=== PATIENT | female | born 1985 | race Caucasian/White ===

== ENCOUNTER 2016-12-26 10:54 | Emergency (ER) | payer OTHER ==
--- NOTE | 2016-12-26 13:05 | DIAGNOSTIC IMAGING REPORT ---
PROCEDURE: US VENOUS - BILATERAL EXT INDICATION: PAIN, SWELLING, HX OF DVT TECHNIQUE: Duplex sonography of the deep venous system in both lower extremities was performed. Compression and augmentation techniques were used. COMPARISON: None. FINDINGS: On the right side each interrogated segment of deep vein from the common femoral vein into the calf veins demonstrates normal compressibility, augmentation and/or color Doppler flow without filling defect. No evidence of significant soft-tissue edema, soft-tissue mass or cyst. On the left side there is nonocclusive thrombus and scarring noted from the common femoral vein through the popliteal vein. IMPRESSION: 1. No deep venous thrombosis in the right lower extremity. 2. Left lower extremity positive for nonocclusive thrombus and vessel scarring seen from the common femoral vein down through the popliteal vein.
--- NOTE | 2016-12-26 13:39 | DIAGNOSTIC IMAGING REPORT ---
PROCEDURE: CTA THORAX WITH CONTRAST INDICATION: Chest pain, initial encounter TECHNIQUE: 80 ml of Isovue 370 was injected intravenously and axial images were obtained of the entire thorax with 3D sagittal and coronal MIP reconstructions. COMPARISON: None. FINDINGS: No evidence of pulmonary emboli. Minor dependent atelectasis in both lung bases. Right axillary surgical clips. No adenopathy or effusion. Normal thoracic aorta without dissection or aneurysm. Normal coronaries. Mild cardiomegaly. Visualized abdomen is unremarkable. Mild degenerative changes of the spine. IMPRESSION: 1. No evidence of prior emboli, aortic dissection or aneurysm 2. Mild cardiomegaly 3. Results discussed with Dr. Hernandez
--- NOTE | 2016-12-26 15:28 | ED CLINICAL REPORT ---
Clinical Report - Physicians/Mid Levels [facility] [address] [place] [address] 12/26/2016 10:54 Patient: GINA YATES Arrived- By private vehicle. Historian- patient. HISTORY OF PRESENT ILLNESS Chief Complaint: CHEST PAIN. It is described as located in the central chest area. No radiation. At its maximum, severity described as moderate. When seen in the E.D., severity described as moderate. Modifying factors. Not worsened by anything. Not relieved by anything. This started past few days and is still present. It was abrupt in onset and has been constant but is not gone now. Onset during rest. The patient has had difficulty breathing and nausea. No vomiting or diaphoresis. No additional chest pain. Similar symptoms previously: None. Recent medical care: Not recently seen/assessed. REVIEW OF SYSTEMS No fever, chills, abdominal pain, black stools or difficulty with urination. No bloody stools. All systems otherwise negative, except as recorded above. PAST HISTORY See nurses notes. Medications: Xarelto Oral. Allergies: No Known Drug Allergy. SOCIAL HISTORY Never smoker. No alcohol use or drug use. No recent travel. Is a local resident. ADDITIONAL NOTES The nursing notes have been reviewed. PHYSICAL EXAM Vital Signs: 12/26/2016 11:01 BP: 143/84. HR: 93. RR: 20. O2 saturation: 100%. Temp: 97.8 F. Hypertensive. Oxygen saturation normal. Appearance: Alert. Oriented X3. No acute distress. Eyes: Pupils equal, round and reactive to light. Eyes normal inspection. ENT: Ears normal. Nose normal. Pharynx normal. Neck: Normal inspection. Neck supple. CVS: Normal heart rate and rhythm. Heart sounds normal. Pulses normal. Respiratory: No respiratory distress. Breath sounds normal. Chest nontender. No rales, rhonchi or wheezes. Abdomen: Soft and nontender. Bowel sounds normal. Skin: Skin warm and dry. Normal skin color. No rash. Normal skin turgor. Extremities: Extremities exhibit normal ROM. No lower extremity edema. LABS, X-RAYS, AND EKG EKG: No acute process. No acute ischemia. Normal EKG. Normal sinus rhythm. Rate: 91. Normal P waves. Normal RUFINO. Normal QRS complex. Normal axis. Normal ST and T waves, QT and QTc. The study has been interpreted contemporaneously. The study has been independently viewed by me. The EKG appears to be a good tracing. Chest CT: (PROCEDURE: CTA THORAX WITH CONTRAST INDICATION: Chest pain, initial encounter TECHNIQUE: 80 ml of Isovue 370 was injected intravenously and axial images were obtained of the entire thorax with 3D sagittal and coronal MIP reconstructions. COMPARISON: None. FINDINGS: No evidence of pulmonary emboli. Minor dependent atelectasis in both lung bases. Right axillary surgical clips. No adenopathy or effusion. Normal thoracic aorta without dissection or aneurysm. Normal coronaries. Mild cardiomegaly. Visualized abdomen is unremarkable. Mild degenerative changes of the spine. IMPRESSION: 1. No evidence of prior emboli, aortic dissection or aneurysm 2. Mild cardiomegaly). Chest CT performed with contrast. The study was independently viewed by me and interpreted by the radiologist. The study was discussed with the radiologist (via phone and pacs). Lower Extremity Sonography: Vessels patent. Bilateral US. Chronic DVT left lower extremity. No acute DVT. The exam was performed by a tire technician. The study was independently viewed by me, interpreted contemporaneously by me and discussed with the radiologist. Laboratory Tests: UA-Culture if indicated: (SIMRAN: 12/26/2016 11:48) ( MsgRcvd 12/26/2016 12:04) Final results Test Result Flag Units (Reference) URINE COLOR YELLOW URINE APPEARANCE SL CLOUDY URINE GLUCOSE NEGATIVE (NEGATIVE) URINE BILIRUBIN NEGATIVE (NEGATIVE) URINE KETONE NEGATIVE (NEGATIVE) URINE SPECIFIC GRAVITY 1.020 (1.010-1.030) URINE PH 7.5 (5.0-8.0) URINE PROTEIN NEGATIVE (NEGATIVE) URINE UROBILINOGEN 0.2 EU/dL (0.2-1.0) URINE NITRITE NEGATIVE (NEGATIVE) URINE BLOOD TRACE-INTACT (NEGATIVE) URINE LEUK ESTERASE NEGATIVE (NEGATIVE) URINE RBC 1-3 rbc/hpf (0-1) URINE WBC 3-5 wbc/hpf (0-1) URINE EPITHELIAL CELLS 10-15 EPI/hpf (0-5) URINE BACTERIA FEW (1+) (NONE SEEN) URINE COMMENT CULT NOT INDICATED 2+ MUCOUSURINE CULTURES ARE SET-UP BASED ON THE FOLLOWING CRITERIA:POSITIVE NITRITEPOSITIVE LEUKOCYTE ESTERASEGREATER THAN 10 WHITE BLOOD CELLSMODERATE (2+) OR GREATER BACTERIA Urine: (SIMRAN: 12/26/2016 11:48) ( [facility] 12/26/2016 11:56) Final results Test Result Flag Units (Reference) URINE NEGATIVE CBC w Diff: (SIMRAN: 12/26/2016 11:55) ( [facility] 12/26/2016 12:06) Final results Test Result Flag Units (Reference) WHITE BLOOD COUNT 8.3 K/uL (4.5-11.5) RED BLOOD COUNT 4.39 M/uL (4.00-5.20) HEMOGLOBIN 13.3 gm/dL (12.0-16.0) HEMATOCRIT 39.1 % (36.0-46.0) MEAN CELL VOLUME 89 fL (80-100) MEAN CORPUSCULAR HGB 30 pg (26-34) MEAN CORPUSCULAR HGB CONC 34 g/dL (31-37) RED CELL DISTRIBUTION WIDTH 12.2 % (11.6-14.8) PLATELET COUNT 264 K/uL (150-400) NEUTROPHIL % 58.8 % (50-75) LYMPH % 32.2 % (25-40) MONO % 7.5 % (3-14) EOSINOPHIL % 1.1 % (0-4) BASOPHIL % 0.4 % (0-2) PT with INR: (SIMRAN: 12/26/2016 11:55) ( [facility] 12/26/2016 12:09) Final results Test Result Flag Units (Reference) INR 1.3 H (0.8-1.2) Low Intensity Therapy: INR 1.5-2.0 PT range 18.5-23.1Mod.Intensity Therapy: INR 2.0-3.0 PT range 23.1-31.5High Intensity Therapy: INR 2.5-3.5 PT range 27.4-35.5High Intensity Therapy 2: INR 3.0-4.0 PT range 31.5-39.3 APTT 35 H SECONDS (24-34) BNP: (SIMRAN: 12/26/2016 11:55) ( [facility] 12/26/2016 14:00) Final results Test Result Flag Units (Reference) B-TYPE NATRIURETIC PEPTIDE 14.3 pg/ml (5-100) Urine Drug Screen: (SIMRAN: 12/26/2016 11:48) ( [facility] 12/26/2016 12:16) Final results Test Result Flag Units (Reference) AMPHETAMINE/METHAMPHETAMINE NEGATIVE (NEGATIVE) BARBITURATE NEGATIVE (NEGATIVE) BENZODIAZEPINE NEGATIVE (NEGATIVE) CANNABINOID NEGATIVE (NEGATIVE) COCAINE NEGATIVE (NEGATIVE) ECSTASY NEGATIVE (NEGATIVE) METHADONE NEGATIVE (NEGATIVE) OPIATE NEGATIVE (NEGATIVE) The urine drug screen is a qualitative screening test fordrug overdose and abuse. All screen results should beconsidered as presumptive.Drugs screened for are as follows:BenzodiazepinesCocaineAmphetamines/MetamphetaminesTHC (Tetrahydrocannabinol)OpiatesBarbituratesEcstasyMethadonePositive results are unconfirmed. For confirmation, notifythe lab for the specimen to be sent to the reference lab.All confirmations must be performed by a differentmethodology.The ingestion of natural herbal and plant productscontaining Ephedra/Ephedra metabolites can produce in urineone or more substances capable of cross reacting withamphetamine/methamphetamine immunoassays. These testsprovide a preliminary result only. A more specificalternative chemical method must be used to obtain aconfirmed analytical result. CMP: (SIMRAN: 12/26/2016 11:55) ( [facility] 12/26/2016 12:22) Final results Test Result Flag Units (Reference) GLUCOSE 89 mg/dL (70-110) BUN 12 mg/dL (7-18) CREATININE 0.6 mg/dL (0.6-1.3) Estimated GFR >60 mL/min Estimated GFR- >60 mL/min Note: Persistent reduction over 3 months in eGFR<60 mL/min/1.73 m2 defines CKD. Patients with eGFR values>=60 mL/min/1.73 m2 may also have CKD if evidence ofpersistent proteinuria. Additional information may be foundat www.kidney.org. SODIUM 139 mmol/L (136-145) POTASSIUM 4.2 mmol/L (3.5-5.1) CHLORIDE 103 mmol/L (98-107) CARBON DIOXIDE 28 mmol/L (21-32) CALCIUM 9.3 mg/dL (8.5-10.1) TOTAL PROTEIN 7.4 g/dL (6.4-8.2) ALBUMIN 3.9 g/dL (3.3-5.0) BILIRUBIN, TOTAL 0.8 mg/dL (0.0-1.0) ALKALINE PHOSPHATASE 87 U/L (46-116) AST (SGOT) 18 U/L (15-37) ALT (SGPT) 33 U/L (12-78) TROPONIN I <0.05 ng/mL (0.00-1.5) TROPONIN REFERENCE RANGE:<0.1 NEGATIVE0.1-1.5 INDETERMINANT>1.5 POSITIVE . PROGRESS AND PROCEDURES Course of Care: he patient is a pleasant 31-year-old female with a past medical history significant for DVTs presenting for evaluation of chest pain. Patient was encouraged by her providers to come to the emergency department. The patient is resting in bed and in no acute distress. Patient appears nontoxic. Because of the patient's history of DVT, we'll be evaluating patient with CT scan of the chest. Do not feel d-dimer adequate given the patient's risk. Patient is agreeable to the treatment plan. We'll also be ordering laboratory studies for evaluation of other causes for the patient's chest pain including a troponin. patient's EKG is unremarkable. Rest of the laboratory studies do not show any acute abnormalities. CT scan of the chest is pending at this time. Workup does not show any acute abnormalities. CT scan of the chest does not show any signs of thoracic aortic dissection or pulmonary embolism. Patient on anticoagulation treatment already. Patient is having appropriate therapy. Do not feel further emergency department workup or admission to the hospital is required at this point in time. Patient is noted to be low risk for acute myocardial infarction. Encouraged patient to follow up with primary care for further risk stratification and workup. I discussed with the patient her workup, diagnosis, home care, follow-up, and return precautions. All questions answered. The patient expressed understanding of these instructions and was agreeable to them. CLINICAL IMPRESSION Chest pain characterized as "tightness" .12 lead EKG performed. 12/26/2016 11:01 BP: 143/84. HR: 93. RR: 20. O2 saturation: 100%. Temp: 97.8 F. Blood pressure normal. Oxygen saturation normal. chronic left leg pain chronic left DVT. INSTRUCTIONS Warnings: GENERAL WARNINGS: Return or contact your physician immediately if your condition worsens or changes unexpectedly, if not improving as expected, or if other problems arise. SPECIFICALLY, return if you develop chest, neck, jaw, shoulder, arm, or back pain, difficulty breathing, a fluttering sensation in your chest, lightheadedness, fainting, excessive fatigue, or sudden sweating. Your Current Medications: CONTINUE TAKING THE FOLLOWING MEDICATIONS: Xarelto Oral. Prescription Medications: Percocet 5 mg/325 mg: take 1 tablet orally every 6 hours as needed for pain. Dispense twelve (12). No refill. Substitution is permissible. Follow-up: Return to the emergency department as needed. Follow up with your doctor in three days. Reason for referral: recheck today's concerns. Summary of care provided to patient via paper. Screening today revealed the patient's blood pressure to be in the normal range. The patient should follow up with a primary care provider for blood pressure management. Understanding of the discharge instructions verbalized by patient. (Electronically signed by Raymond Hernandez Dr. 01/01/2017 6:49)
--- NOTE | 2016-12-26 15:28 | ED ORDER SUMMARY ---
..... Patient: GINA YATES [facility] VisitID: [id number] [place] [address] 31y, F Registration Date/Time: 12/26/2016 ORDER SHEET Weight: 86.1 kg (stated) Allergies: No Known Drug Allergy GENERAL ORDERS: Flat Cutter (Continuous) (CP) (11:12/26/2016 Ras Mohan) (Ack 11:15 LNations ER Tech1) (11:54 LWhalen R.N.) CTA Thorax w Cont (No) (N/A) Urgent (11:12/26/2016 Ras Mohan) (Ack 11:16 LNations ER Tech1) (15:34 LNations ER Tech1) CBC w Diff Urgent (11:12/26/2016 Ras Mohan) (Ack 11:15 LNations ER Tech1) (15:34 LNations ER Tech1) CMP Urgent (11:12/26/2016 Ras Mohan) (Ack 11:15 LNations ER Tech1) (15:34 LNations ER Tech1) PT with INR Urgent (11:12/26/2016 Ras Mohan) (Ack 11:16 LNations ER Tech1) (15:34 LNations ER Tech1) PTT Urgent (11:12/26/2016 Ras Mohan) (Ack 11:16 LNations ER Tech1) (15:34 LNations ER Tech1) Troponin-I Urgent (11:12/26/2016 Ras Mohan) (Ack 11:16 LNations ER Tech1) (15:34 LNations ER Tech1) Urine Drug Screen Urgent (11:12/26/2016 Ras Mohan) (Ack 11:16 LNations ER Tech1) (11:54 LWhalen R.N.) Urine Urgent (11:12/26/2016 Ras Mohan) (Ack 11:16 LNations ER Tech1) (11:54 LWhalen R.N.) UA-Culture if indicated Urgent (11:12/26/2016 Ras Mohan) (Ack 11:16 LNations ER Tech1) (11:53 LWhalen R.N.) EKG - ER Stat (11:11 12/26/2016 Ras Mohan) (Ack 11:14 LNations ER Tech1) (11:17 LTapper) Pulse oximeter (11:11 12/26/2016 Ras Mohan) (Ack 11:15 LNations ER Tech1) (11:54 LWhalen R.N.) US Venous Bilat Urgent (11:20 12/26/2016 Ras Mohan) (Ack 11:24 LNations ER Tech1) (15:34 LNations ER Tech1) BNP Urgent (13:36 12/26/2016 Ras Mohan) (Ack 13:37 LNations ER Tech1) (15:34 LNations ER Tech1) MEDICATION ORDERS: IV FLUIDS: IV Saline Lock (11:11 12/26/2016 Ras Mohan) (11:38 LWhalen R.N.) Morphine IV 4 mg (once now. may repeat in 15 minutes for no improvement of pain for total of 8 mg) (11:21 12/26/2016 Ras Mohan) (11:38 LWhalen R.N.) ORDER SHEET NOTES: [Electronically signed by Estuardo Carpenter R.N. (19:20 12/26/2016)] [Electronically signed by Raymond Hernandez Dr. (06:49 01/01/2017)] [Electronically locked/signed by Estuardo Carpenter R.N. (19:20 12/26/2016)]
--- NOTE | 2016-12-26 15:28 | ED ORDER SUMMARY ---
..... Patient: GINA YATES OrderSheet [facility] VisitID: [id number] [place] [address] 31y, F Registration Date/Time: 12/26/2016 ORDER SHEET Weight: 86.1 kg (stated) Allergies: No Known Drug Allergy GENERAL ORDERS: Building Mechanic (Continuous) (CP) (11:12/26/2016 Ras Mohan) (Ack 11:15 LNations ER Tech1) (11:54 LWhalen R.N.) CTA Thorax w Cont (No) (N/A) Urgent (11:12/26/2016 Ras Mohan) (Ack 11:16 LNations ER Tech1) (15:34 LNations ER Tech1) CBC w Diff Urgent (11:12/26/2016 Ras Mohan) (Ack 11:15 LNations ER Tech1) (15:34 LNations ER Tech1) CMP Urgent (11:12/26/2016 Ras Mohan) (Ack 11:15 LNations ER Tech1) (15:34 LNations ER Tech1) PT with INR Urgent (11:12/26/2016 Ras Mohan) (Ack 11:16 LNations ER Tech1) (15:34 LNations ER Tech1) PTT Urgent (11:12/26/2016 Ras Mohan) (Ack 11:16 LNations ER Tech1) (15:34 LNations ER Tech1) Troponin-I Urgent (11:12/26/2016 Ras Mohan) (Ack 11:16 LNations ER Tech1) (15:34 LNations ER Tech1) Urine Drug Screen Urgent (11:12/26/2016 Ras Mohan) (Ack 11:16 LNations ER Tech1) (11:54 LWhalen R.N.) Urine Urgent (11:12/26/2016 Ras Mohan) (Ack 11:16 LNations ER Tech1) (11:54 LWhalen R.N.) UA-Culture if indicated Urgent (11:12/26/2016 Ras Mohan) (Ack 11:16 LNations ER Tech1) (11:53 LWhalen R.N.) EKG - ER Stat (11:11 12/26/2016 Ras Mohan) (Ack 11:14 LNations ER Tech1) (11:17 LTapper) Pulse oximeter (11:11 12/26/2016 Ras Mohan) (Ack 11:15 LNations ER Tech1) (11:54 LWhalen R.N.) US Venous Bilat Urgent (11:20 12/26/2016 Ras Mohan) (Ack 11:24 LNations ER Tech1) (15:34 LNations ER Tech1) BNP Urgent (13:36 12/26/2016 Ras Mohan) (Ack 13:37 LNations ER Tech1) (15:34 LNations ER Tech1) MEDICATION ORDERS: IV FLUIDS: IV Saline Lock (11:11 12/26/2016 Ras Mohan) (11:38 LWhalen R.N.) Morphine IV 4 mg (once now. may repeat in 15 minutes for no improvement of pain for total of 8 mg) (11:21 12/26/2016 Ras Mohan) (11:38 LWhalen R.N.) ORDER SHEET NOTES: [Electronically signed by Estuardo Carpenter R.N. (19:20 12/26/2016)] [Electronically signed by Raymond Hernandez Dr. (06:49 01/01/2017)] [Electronically locked/signed by Estuardo Carpenter R.N. (19:20 12/26/2016)]
--- NOTE | 2016-12-26 15:28 | ED NURSING NOTES ---
Clinical Report - Nurses [place] [address] [place] [address] 12/26/2016 10:54 Patient: GINA YATES TRIAGE Triage time 11:02 Dec 26 2016. Acuity: LEVEL 2. Chief Complaint: CHEST PAIN, DYSPNEA, NAUSEA and LEG PAIN (hx of clots). KUNAL COMA SCORE: [place] Coma Scale: 15- eyes open spontaneously (4); best verbal response- oriented x 4 (5); best motor response- obeys commands (6). --11:09 Estuardo Carpenter R.N. 11:01 12/26/16. BP: 143/84. HR: 93. RR: 20. O2 saturation: 100%. Temp: 97.8 F. --11:09 Estuardo Carpenter R.N. Weight: 86.1 kg stated. Height/Length: 64 inches Per Patient. BMI: 32.6. --11:08 Estuardo Carpenter R.N. Medications Xarelto Oral. --11:05 Estuardo Carpenter R.N. Allergies No Known Drug Allergy. --11:05 Estuardo Carpenter R.N. History Arrived by private vehicle. Historian: patient. Primary physician (). This started yesterday. She has had difficulty breathing. No fever, weakness, cough or skin rash. Denies muscle aches. 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 PAST MEDICAL HX: Last normal menstrual period- 5 days ago. SOCIAL HX: Never smoker. No alcohol use or drug use. No infectious disease exposure. SELF HARM ASSESSMENT: A self harm assessment was performed. The patient answered "no" to the question "Have you recently felt down, depressed, or hopeless?" and "Do you have thoughts of harming or killing yourself?". FALL RISK ASSESSMENT: Fall risk assessment completed. No fall risk identified. NUTRITIONAL RISK ASSESSMENT: The nutritional risk assessment revealed no deficiencies. FUNCTIONAL ASSESSMENT: Functional assessment: no impairments noted. LEARNING NEEDS ASSESSMENT: The learning needs assessment revealed no barriers. ABUSE ASSESSMENT: Abuse assessment: (yes) The patient was asked "Do you feel safe in your home?". SKIN INTEGRITY ASSESSMENT: Skin integrity risk assessment completed. No skin integrity risk identified. --: Estuardo Carpenter R.N. PROBLEMS: Muscle Spasm. Back Pain. Ovarian Cyst. LNMP - Last Normal Menstrual Period. Lumbar Strain. Pharyngitis. DVT - Deep Venous Thrombosis. Immunizations. --: Estuardo Carpenter R.N. Interventions ID band on patient. --: Estuardo Carpenter R.N. PHYSICAL ASSESSMENT Ambulatory to room. ( Left leg swelling and tenderness. Chest pain. SOB). GENERAL / NEURO / PSYCH: Alert. Oriented X 4. Appears in no acute distress. Appears anxious. HEENT: Pupils equal, round and reactive to light. No facial asymmetry noted. Mucous membranes are pink. RESPIRATORY: Respirations not labored. Chest nontender. Breath sounds within normal limits. CVS: Normal sinus rhythm noted. Capillary refill less than 2 seconds. Pulses within normal limits. GI / : Abdomen soft and nontender and normal bowel sounds. SKIN: Skin intact. Skin is warm and dry. Normal skin turgor. --: Estuardo Carpenter R.N. NURSING PROGRESS NOTES The plan of care for this patient includes an assessment with efforts to address the patient's anxiety; patient positioning and appropriate ambient lighting; mobility impairments; therapeutic needs of the patient. monitoring analyst, pulse oximeter and NIBP monitor placed on patient. Head of bed elevated (45). Reassurance given. Call light placed in reach. Side rails up x 1. Bed placed in lowest position. Brakes of bed on. --: Estuardo Carpenter R.N. EKG time: (11:16 AM). EKG was performed by a tech and shown to the ED physician. --11:18 Fidencio Castle 11:34 12/26/2016 Site #1 started via IV in the right hand with an 20g angiocath, with aseptic technique and good blood return; one attempt. Saline lock flushed with 10 mL saline (unable to draw blood). --:34 Sylvia Morales R.N. 11:38 12/26/2016 Morphine IVP 4 mg given over 2 minute(s) via site #1. Allergies verified, confirmed 5 rights and sedative warning given to the patient's kardex clerk. IV patency established. IV site checked: no pain, redness, or swelling. IV flushed thoroughly pre- and post-medication administration. --11:38 Estuardo Carpenter R.N. ( POC collected result is negative.). --11:53 Estuardo Carpenter R.N. 12:46 12/26/2016 Morphine IVP 4 mg given over 2 minute(s) via site #1. Allergies verified, confirmed 5 rights and sedative warning given to the patient. IV patency established. IV site checked: no pain, redness, or swelling. IV flushed thoroughly pre- and post-medication administration. --12:46 Estuardo Carpenter R.N. DISPOSITION / DISCHARGE Departure time: 15:33 Dec 26 2016. Condition at departure: improved. No learning barriers present. Discharge instructions provided and reviewed with the patient. Reviewed warnings. Reviewed medication(s). Treatments reviewed. Reviewed referrals. Patient verbalized understanding. Written instructions provided in Lithuanian. The patient was discharged home and accompanied by spouse. She left the Emergency Department ambulatory and via private vehicle. Spouse driving. --15:33 Estuardo Carpenter R.N. 15:32 12/26/16. BP: 104/64. HR: 84. RR: 23. O2 saturation: 96%. Temp: 98.4 F. Pain level now 3/10. --15:33 Estuardo Carpenter R.N. 15:39 12/26/2016 Site #1 removed upon discharge. Catheter intact. Pressure dressing applied. --15:39 Estuardo Carpenter R.N. Locked/Released at 12/26/2016 19:20 by Estuardo Carpenter R.N.
--- NOTE | 2016-12-26 15:28 | ED NURSING NOTES ---
Clinical Report - Nurses [place] [address] [place] [address] 12/26/2016 10:54 Patient: GINA YATES TRIAGE Triage time 11:02 Dec 26 2016. Acuity: LEVEL 2. Chief Complaint: CHEST PAIN, DYSPNEA, NAUSEA and LEG PAIN (hx of clots). [place] COMA SCORE: [place] Coma Scale: 15- eyes open spontaneously (4); best verbal response- oriented x 4 (5); best motor response- obeys commands (6). --11:09 Estuardo Carpenter R.N. 11:01 12/26/16. BP: 143/84. HR: 93. RR: 20. O2 saturation: 100%. Temp: 97.8 F. --11:09 Estuardo Carpenter R.N. Weight: 86.1 kg stated. Height/Length: 64 inches Per Patient. BMI: 32.6. --11:08 Estuardo Carpenter R.N. Medications Xarelto Oral. --11:05 Estuardo Carpenter R.N. Allergies No Known Drug Allergy. --11:05 Estuardo Carpenter R.N. History Arrived by private vehicle. Historian: patient. Primary physician (). This started yesterday. She has had difficulty breathing. No fever, weakness, cough or skin rash. Denies muscle aches. 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 PAST MEDICAL HX: Last normal menstrual period- 5 days ago. SOCIAL HX: Never smoker. No alcohol use or drug use. No infectious disease exposure. SELF HARM ASSESSMENT: A self harm assessment was performed. The patient answered "no" to the question "Have you recently felt down, depressed, or hopeless?" and "Do you have thoughts of harming or killing yourself?". FALL RISK ASSESSMENT: Fall risk assessment completed. No fall risk identified. NUTRITIONAL RISK ASSESSMENT: The nutritional risk assessment revealed no deficiencies. FUNCTIONAL ASSESSMENT: Functional assessment: no impairments noted. LEARNING NEEDS ASSESSMENT: The learning needs assessment revealed no barriers. ABUSE ASSESSMENT: Abuse assessment: (yes) The patient was asked "Do you feel safe in your home?". SKIN INTEGRITY ASSESSMENT: Skin integrity risk assessment completed. No skin integrity risk identified. --: Estuardo Carpenter R.N. PROBLEMS: Muscle Spasm. Back Pain. Ovarian Cyst. LNMP - Last Normal Menstrual Period. Lumbar Strain. Pharyngitis. DVT - Deep Venous Thrombosis. Immunizations. --: Estuardo Carpenter R.N. Interventions ID band on patient. --: Estuardo Carpenter R.N. PHYSICAL ASSESSMENT Ambulatory to room. ( Left leg swelling and tenderness. Chest pain. SOB). GENERAL / NEURO / PSYCH: Alert. Oriented X 4. Appears in no acute distress. Appears anxious. HEENT: Pupils equal, round and reactive to light. No facial asymmetry noted. Mucous membranes are pink. RESPIRATORY: Respirations not labored. Chest nontender. Breath sounds within normal limits. CVS: Normal sinus rhythm noted. Capillary refill less than 2 seconds. Pulses within normal limits. GI / : Abdomen soft and nontender and normal bowel sounds. SKIN: Skin intact. Skin is warm and dry. Normal skin turgor. --: Estuardo Carpenter R.N. NURSING PROGRESS NOTES The plan of care for this patient includes an assessment with efforts to address the patient's anxiety; patient positioning and appropriate ambient lighting; mobility impairments; therapeutic needs of the patient. groundwater monitoring technician, pulse oximeter and NIBP monitor placed on patient. Head of bed elevated (45). Reassurance given. Call light placed in reach. Side rails up x 1. Bed placed in lowest position. Brakes of bed on. --: Estuardo Carpenter R.N. EKG time: (11:16 AM). EKG was performed by a tech and shown to the ED physician. --11:18 Fidencio Castle 11:34 12/26/2016 Site #1 started via IV in the right hand with an 20g angiocath, with aseptic technique and good blood return; one attempt. Saline lock flushed with 10 mL saline (unable to draw blood). --:34 Sylvia Morales R.N. 11:38 12/26/2016 Morphine IVP 4 mg given over 2 minute(s) via site #1. 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 IV patency established. IV site checked: no pain, redness, or swelling. IV flushed thoroughly pre- and post-medication administration. --11:38 Estuardo Carpenter R.N. ( POC collected result is negative.). --11:53 Estuardo Carpenter R.N. 12:46 12/26/2016 Morphine IVP 4 mg given over 2 minute(s) via site #1. Allergies verified, confirmed 5 rights and sedative warning given to the patient. IV patency established. IV site checked: no pain, redness, or swelling. IV flushed thoroughly pre- and post-medication administration. --12:46 Estuardo Carpenter R.N. DISPOSITION / DISCHARGE Departure time: 15:33 Dec 26 2016. Condition at departure: improved. No learning barriers present. Discharge instructions provided and reviewed with the patient. Reviewed warnings. Reviewed medication(s). Treatments reviewed. Reviewed referrals. Patient verbalized understanding. Written instructions provided in Latvian. The patient was discharged home and accompanied by spouse. She left the Emergency Department ambulatory and via private vehicle. Spouse driving. --15:33 Estuardo Carpenter R.N. 15:32 12/26/16. BP: 104/64. HR: 84. RR: 23. O2 saturation: 96%. Temp: 98.4 F. Pain level now 3/10. --15:33 Estuardo Carpenter R.N. 15:39 12/26/2016 Site #1 removed upon discharge. Catheter intact. Pressure dressing applied. --15:39 Estuardo Carpenter R.N. Locked/Released at 12/26/2016 19:20 by Estuardo Carpenter R.N.
--- NOTE | 2017-01-01 06:49 | ED DISCHARGE INSTRUCTIONS ---
Patient: GINA YATES General Instructions [facility] VisitID: [id number] [place] [address] 31y, F Registration Date/Time: 12/26/2016 Chest pain characterized as "tightness" .12 lead EKG performed. 12/26/2016 11:01 BP: 143/84. HR: 93. RR: 20. O2 saturation: 100%. Temp: 97.8 F. Blood pressure normal. Oxygen saturation normal. chronic left leg pain chronic left DVT. INSTRUCTIONS Warnings: GENERAL WARNINGS: Return or contact your physician immediately if your condition worsens or changes unexpectedly, if not improving as expected, or if other problems arise. SPECIFICALLY, return if you develop chest, neck, jaw, shoulder, arm, or back pain, difficulty breathing, a fluttering sensation in your chest, lightheadedness, fainting, excessive fatigue, or sudden sweating. Your Current Medications: CONTINUE TAKING THE FOLLOWING MEDICATIONS: Xarelto Oral. Prescription Medications: Percocet 5 mg/325 mg: take 1 tablet orally every 6 hours as needed for pain. Dispense twelve (12). No refill. Substitution is permissible. Follow-up: Return to the emergency department as needed. Follow up with your doctor in three days. Reason for referral: recheck today's concerns. Summary of care provided to patient via paper. Screening today revealed the patient's blood pressure to be in the normal range. The patient should follow up with a primary care provider for blood pressure management. Understanding of the discharge instructions verbalized by patient. ADDITIONAL INFORMATION Chest Pain, Uncertain Cause Chest pain can happen for a number of reasons. Sometimes the cause can not be determined. If yourcondition does not seem serious, and your pain does not appear to be coming from your heart, your doctor may recommend watching it closely. Sometimes the signs of a serious problem take more time to appear. Therefore, watch for the warning signs listed below. Home care After your visit, follow these recommendations: Rest today and avoid strenuous activity. Take any prescribed medicine as directed. Follow-up care Follow up with your doctor or this facility as instructed or if you do not start to feel better within 24 hours. Call 911 Get immediate medical attention if any of the following occur: A change in the type of pain: if it feels different, becomes more severe, lasts longer, or begins to spread into your shoulder, arm, neck, jaw or back Shortness of breath or increased pain with breathing Weakness, dizziness, or fainting Rapid heart beat Get prompt medical attention Call your doctor right away if any of the following occur: Cough with dark colored sputum (phlegm) or blood Fever of 100.4F(38C) or higher, or as directed by your health care provider Swelling, pain or redness in one leg Oxycodone Hydrochloride, Acetaminophen Oral tablet What is this medicine? ACETAMINOPHEN; OXYCODONE (a set a KARMEN jaja fen; ox i KOE done) is a pain reliever. It is used to treat mild to moderate pain. How should I use this medicine? Take this medicine by mouth with a full glass of water. Follow the directions on the prescription label. Take your medicine at regular intervals. Do not take your medicine more often than directed. Talk to your diplomatic courier regarding the use of this medicine in children. Special care may be needed. Patients over 65 years old may have a stronger reaction and need a smaller dose. What side effects may I notice from receiving this medicine? Side effects that you should report to your doctor or health care transition mgr as soon as possible: allergic reactions like skin rash, itching or hives, swelling of the face, lips, or tongue breathing difficulties, wheezing confusion light headedness or fainting spells severe stomach pain yellowing of the skin or the whites of the eyes Side effects that usually do not require medical attention (report to your doctor or health care transition mgr if they continue or are bothersome): dizziness drowsiness nausea vomiting What may interact with this medicine? alcohol antihistamines barbiturates like amobarbital, butalbital, butabarbital, methohexital, pentobarbital, phenobarbital, thiopental, and secobarbital benztropine drugs for bladder problems like solifenacin, trospium, oxybutynin, tolterodine, hyoscyamine, and methscopolamine drugs for breathing problems like ipratropium and tiotropium drugs for certain stomach or intestine problems like propantheline, homatropine methylbromide, glycopyrrolate, atropine, belladonna, and dicyclomine general anesthetics like etomidate, ketamine, nitrous oxide, propofol, desflurane, enflurane, halothane, isoflurane, and sevoflurane medicines for depression, anxiety, or psychotic disturbances medicines for sleep muscle relaxants naltrexone narcotic medicines (opiates) for pain phenothiazines like perphenazine, thioridazine, chlorpromazine, mesoridazine, fluphenazine, prochlorperazine, promazine, and trifluoperazine scopolamine tramadol trihexyphenidyl What if I miss a dose? If you miss a dose, take it as soon as you can. If it is almost time for your next dose, take only that dose. Do not take double or extra doses. Where should I keep my medicine? Keep out of the reach of children. This medicine can be abused. Keep your medicine in a safe place to protect it from theft. Do not share this medicine with anyone. Selling or giving away this medicine is dangerous and against the law. Store at room temperature between 20 and 25 degrees C (68 and 77 degrees F). Keep container tightly closed. Protect from light. This medicine may cause accidental overdose and if it is taken by other adults, children, or pets. Flush any unused medicine down the toilet to reduce the chance of harm. Do not use the medicine after the expiration date. What should I tell my health care provider before I take this medicine? They need to know if you have any of these conditions: brain tumor Crohn's disease, inflammatory bowel disease, or ulcerative colitis drink more than 3 alcohol containing drinks per day drug abuse or addiction head injury heart or circulation problems kidney disease or problems going to the bathroom liver disease lung disease, asthma, or breathing problems an unusual or allergic reaction to acetaminophen, oxycodone, other opioid analgesics, other medicines, foods, dyes, or preservatives or trying to get breast-feeding What should I watch for while using this medicine? Tell your doctor or health care transition mgr if your pain does not go away, if it gets worse, or if you have new or a different type of pain. You may develop tolerance to the medicine. Tolerance means that you will need a higher dose of the medication for pain relief. Tolerance is normal and is expected if you take this medicine for a long time. Do not suddenly stop taking your medicine because you may develop a severe reaction. Your body becomes used to the medicine. This does NOT mean you are addicted. Addiction is a behavior related to getting and using a drug for a non-medical reason. If you have pain, you have a medical reason to take pain medicine. Your doctor will tell you how much medicine to take. If your doctor wants you to stop the medicine, the dose will be slowly lowered over time to avoid any side effects. You may get drowsy or dizzy. Do not drive, use machinery, or do anything that needs mental alertness until you know how this medicine affects you. Do not stand or sit up quickly, especially if you are an older patient. This reduces the risk of dizzy or fainting spells. Alcohol may interfere with the effect of this medicine. Avoid alcoholic drinks. There are different types of narcotic medicines (opiates) for pain. If you take more than one type at the same time, you may have more side effects. Give your health care provider a list of all medicines you use. Your doctor will tell you how much medicine to take. Do not take more medicine than directed. Call emergency for help if you have problems breathing. The medicine will cause constipation. Try to have a bowel movement at least every 2 to 3 days. If you do not have a bowel movement for 3 days, call your doctor or health care transition mgr. Do not take Tylenol (acetaminophen) or medicines that have acetaminophen with this medicine. Too much acetaminophen can be very dangerous. Many nonprescription medicines contain acetaminophen. Always read the labels carefully to avoid taking more acetaminophen. You have been given the following additional information: Chest Pain, Uncertain Cause Oxycodone Hydrochloride, Acetaminophen Oral tablet (Electronically signed by Raymond Hernandez Dr. 01/01/2017 6:49)
--- NOTE | 2017-01-01 06:49 | ED MED RECONCILIATION SUMMARY ---
Patient: GINA YATES Medication Reconciliation Report [facility] VisitID: [id number] [place] [address] 31y, F Registration Date/Time: 12/26/2016 Weight: 86.1 kg Height/Length: 64 in. BMI: 32.6 ALLERGIES: No Known Drug Allergy The patient's Home Medications are listed below: CONTINUE TAKING THE FOLLOWING MEDICATIONS: Xarelto Oral The source(s) of the original Home Medication information: Not obtained. The following Medications were given to the patient in the Emergency Department: Morphine [IVP] IVP 4 mg, administered: 12/26/2016 11:38:00 AM Morphine [IVP] IVP 4 mg, administered: 12/26/2016 12:46:00 PM The following Medications were prescribed to the patient: Percocet 5 mg/325 mg: take 1 tablet orally every 6 hours as needed for pain. Dispense twelve (12). No refill. Substitution is permissible. -- Raymond Hernandez Dr.
--- NOTE | 2017-01-01 06:49 | ED MAR SUMMARY ---
..... Medication Administration Record [facility] [address] [place] [address] Patient: GINA YATES Visit ID: [id number] 31y, F Weight: 86.1 kg Height/Length: 64 in BMI: 32.6 ALLERGIES: No Known Drug Allergy Given 11:38 12/26/2016 Estuardo Carpenter RTiana Medication Administered: MORPHINE [IVP], Dose: 4 mg IVP over 2 minute(s), Site: #1 right hand. Medication Ordered: Morphine IV 4 mg (once now. may repeat in 15 minutes for no improvement of pain for total of 8 mg). Given 12:46 12/26/2016 Estuardo Carpenter R.N. Medication Administered: MORPHINE [IVP], Dose: 4 mg IVP over 2 minute(s), Site: #1 right hand. Medication Ordered: Morphine IV 4 mg (once now. may repeat in 15 minutes for no improvement of pain for total of 8 mg).
--- NOTE | 2017-01-01 06:49 | ED MED RECONCILIATION SUMMARY ---
Patient: GINA YATES Medication Reconciliation Report [facility] VisitID: [id number] [place] [address] 31y, F Registration Date/Time: 12/26/2016 Weight: 86.1 kg Height/Length: 64 in. BMI: 32.6 ALLERGIES: No Known Drug Allergy The patient's Home Medications are listed below: CONTINUE TAKING THE FOLLOWING MEDICATIONS: Xarelto Oral The source(s) of the original Home Medication information: Not obtained. The following Medications were given to the patient in the Emergency Department: Morphine [IVP] IVP 4 mg, administered: 12/26/2016 11:38:00 AM Morphine [IVP] IVP 4 mg, administered: 12/26/2016 12:46:00 PM The following Medications were prescribed to the patient: Percocet 5 mg/325 mg: take 1 tablet orally every 6 hours as needed for pain. Dispense twelve (12). No refill. Substitution is permissible. -- Raymond Hernandez Dr.
--- NOTE | 2017-01-01 06:49 | ED MAR SUMMARY ---
..... Medication Administration Record [facility] [address] [place] [address] Patient: GINA YATES Visit ID: [id number] 31y, F Weight: 86.1 kg Height/Length: 64 in BMI: 32.6 ALLERGIES: No Known Drug Allergy Given 11:38 12/26/2016 Estuardo Carpenter RTiana Medication Administered: MORPHINE [IVP], Dose: 4 mg IVP over 2 minute(s), Site: #1 right hand. Medication Ordered: Morphine IV 4 mg (once now. may repeat in 15 minutes for no improvement of pain for total of 8 mg). Given 12:46 12/26/2016 Estuardo Carpenter R.N. Medication Administered: MORPHINE [IVP], Dose: 4 mg IVP over 2 minute(s), Site: #1 right hand. Medication Ordered: Morphine IV 4 mg (once now. may repeat in 15 minutes for no improvement of pain for total of 8 mg).
== END 2016-12-26 15:45 | disposition home or self-care (01) ==
LOC: ED SRH 10:54
DX: R07.89 Other chest pain (principal); I82.5Z2 Chronic embolism and thrombosis of unspecified deep veins of left distal lower extremity; G89.29 Other chronic pain; M79.662 Pain in left lower leg; Z79.899 Other long term (current) drug therapy
CPT/HCPCS: 90004; 90100; 90616; 91320; 92760; 92761; 92762; 92763; 92764; 92765; 92766; 92767; 93070; 94001; 94060; 95059

== ENCOUNTER 2017-05-22 08:29 | Emergency (ER) | payer OTHER ==
--- NOTE | 2017-05-22 10:19 | DIAGNOSTIC IMAGING REPORT ---
PROCEDURE: US VENOUS - LEFT EXT INDICATION: SWELLING TECHNIQUE: Duplex sonography of the deep venous system in the left lower extremity was performed. Compression and augmentation techniques were used. COMPARISON: Ultrasound dated 12/26/2016 FINDINGS: On the left side there is nonocclusive thrombus and scarring noted from the common femoral vein through the popliteal vein. IMPRESSION: 1. Left lower extremity positive for nonocclusive thrombus and vessel scarring seen from the common femoral vein down through the popliteal vein.
--- NOTE | 2017-05-22 10:43 | ED NURSING NOTES ---
Clinical Report - Nurses [facility] [address] [place] [address] 05/22/2017 8:30 [id number] Triage time 08:50 May 22 2017. Acuity: LEVEL 3. Chief Complaint: LEFT LOWER EXTREMITY PAIN and SWELLING. 08:50 05/22/17. 08:50 05/22/17. Alert. No acute distress. ( Left leg swelling. Pt states she is on blood thinners for DVT. Pt work up yesterday AM and a painful left leg with swelling.). SEPSIS SCREEN: Sepsis Screen. Negative (no infection suspected/documented). [place] COMA SCORE: [place] Coma Scale: 15- eyes open spontaneously (4); best verbal response- oriented x 4 (5); best motor response- obeys commands (6). --08:59 Misael Plascencia R.N. 08:50 05/22/17. BP: 126/67. HR: 65. RR: 14. O2 saturation: 98% on room air. Temp: 98 F (oral). Pain level now: 06/15. --08:59 Misael Plascencia R.N. Weight: 86.1 kg. Height/Length: 63 inches. BMI: 33.6. --08:48 Misael Plascencia R.N. Medications Xarelto Oral (Tablet 20 mg) 1 tablet, daily. --08:52 Misael Plascencia R.N. Medication/allergy information source: the patient. --08:59 Misael Plascencia R.N. Allergies No Known Drug Allergy. --08:52 Misael Plascencia R.N. History Arrived by private vehicle, and unaccompanied. Primary physician (LISA ROME). 08:50 05/22/17. No injury occurred. This occurred yesterday. 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 PAST MEDICAL HX: Deep vein thrombosis (left leg - diagnosed). Tetanus status: up-to-date. Immunizations: up-to-date. Last normal menstrual period- Ended this past Monday. Denies current . SOCIAL HX: Never smoker. Occasional alcohol use. No drug use. No infectious disease exposure. ABUSE ASSESSMENT: No report of abuse. FALL RISK ASSESSMENT: Fall risk assessment completed. No fall risk identified. NUTRITIONAL RISK ASSESSMENT: The nutritional risk assessment revealed no deficiencies. FUNCTIONAL ASSESSMENT: Functional assessment: no impairments noted. LEARNING NEEDS ASSESSMENT: The learning needs assessment revealed no barriers. SKIN INTEGRITY ASSESSMENT: Skin integrity risk assessment completed. No skin integrity risk identified. --08:59 Misael Plascencia R.N. PROBLEMS: Chest Pain. Muscle Spasm. Back Pain. Ovarian Cyst. LNMP - Last Normal Menstrual Period. Lumbar Strain. Pharyngitis. Immunizations. --08:52 Misael Plascencia R.N. ADDITIONAL SURGERIES: . Tubal Ligation. --08:52 Misael Plascencia R.N. Assessment 08:50 05/22/17. --08:59 Misael Plascencia R.N. Interventions 08:50 05/22/17. 08:50 05/22/17. ID and allergy band on patient. To treatment room. --08:59 Misael Plascencia R.N. PHYSICAL ASSESSMENT 08:59 05/22/17. Ambulatory to room. GENERAL / NEURO / PSYCH: Oriented X 4. Alert. Appears in no acute distress. EXTREMITIES: Extremity pulses are within normal limits. Left knee. Left leg: tenderness. Left ankle: tenderness. Left foot: tenderness. SKIN: Skin is warm and dry. --08:59 Misael Plascencia R.N. NURSING PROGRESS NOTES 08:53 05/22/17. Extremity elevated. Neuro-vascular extremity check. Patient gowned. Reassurance given. Two patient identifiers checked. Call light placed in reach. Side rails up x 2. Bed placed in lowest position. Brakes of bed on. --08:53 Misael Plascencia R.N. 08:53 05/22/17. Patient ready for evaluation- chart flagged and notification provided. --08:53 Misael Plascencia R.N. 09:02 05/22/17. ( c/o nausea). --09:02 Misael Plascencia R.N. 09:03 05/22/2017 Zofran ODT (Ondansetron) PO 4 mg given. Allergies verified and confirmed 5 rights. --09:03 Misael Plascencia R.N. 09:08 05/22/17. Patient and family informed about reason for wait and about plan of care. --09:08 Misael Plascencia R.N. 09:08 05/22/17. ( Elevated left leg). --09:08 Misael Plascencia R.N. 09:38 05/22/17. --09:38 Misael Plascencia R.N. 09:38 05/22/17. BP: 123/70. HR: 65. RR: 12. O2 saturation: 99% on room air. --09:38 Misael Plascencia R.N. 09:38 05/22/17. Pulse oximeter placed on patient; monitor alarms on. --09:38 Misael Plascencia R.N. 09:41 05/22/17. ( US here). --09:41 Misael Plascencia R.N. 10:05 05/22/17. ( US completed). --10:05 Misael Plascencia R.N. 10:33 05/22/17. ( Repositioned patient, gave pt ice pack per request). --10:33 Misael Plascencia R.N. DISPOSITION / DISCHARGE 10:51 05/22/17. Condition at departure: improved. The goals identified in the patient's plan of care were met. ( Pt will make a PCP appt today for follow up). No learning barriers present. Discharge instructions provided and reviewed with the patient. Reviewed warnings. Reviewed medication(s). Treatments reviewed. Patient verbalized understanding. Written instructions provided in Croatian. The patient was discharged by the physician. She was discharged home and unaccompanied at time of discharge. She left the Emergency Department ambulatory and via private vehicle. Patient driving. FALL RISK ASSESSMENT: Fall risk assessment completed. No fall risk identified. --10:51 Misael Plascencia R.N. 10:50 05/22/17. BP: 117/72. HR: 78. RR: 14. O2 saturation: 99% on room air. Temp: 98.1 F (oral). Pain level now: 11/15. --10:51 Misael Plascencia R.N. 10:51 05/22/17. Departure time: 10:51 May 22 2017. --10:52 Misael Plascencia R.N. Locked/Released at 05/22/2017 10:56 by Misael Plascencia R.N.
--- NOTE | 2017-05-22 10:43 | ED CLINICAL REPORT ---
Clinical Report - Physicians/Mid Levels [facility] [address] [place] [address] 05/22/2017 8:30 Patient: GINA YATES Time Seen: 09:18 May 22 2017. Arrived- By private vehicle. Historian- patient. Note: (Sent by Doctor with concern for DVT.). CPT: ER phys charges level 3 (#536856). HISTORY OF PRESENT ILLNESS Chief Complaint: LOWER EXTREMITY PAIN and SWELLING. This started yesterday and is still present. Severity is described as being moderate. It has become recently worse. The quality is noted to be aching and "pain". Symptoms located in the area of the left leg. The patient has had swelling, but not had redness. No difficulty walking. No bladder dysfunction, bowel dysfunction, sensory loss or motor loss. Patient denies an injury. Similar symptoms previously: Recent medical care: Not recently seen/assessed. REVIEW OF SYSTEMS No cough, chest pain, difficulty breathing, fever or skin rash. No enlarged lymph nodes, neck pain, back pain, sore throat or abdominal pain. No vomiting or diarrhea. PAST HISTORY ( Chest Pain. Muscle Spasm. Back Pain. Ovarian Cyst. LNMP - Last Normal Menstrual Period. Lumbar Strain. Pharyngitis. DVT ADDITIONAL SURGERIES: . Tubal Ligation.). Medications: Xarelto Oral (Tablet 20 mg) 1 tablet, daily. Allergies: No Known Drug Allergy. SOCIAL HISTORY Never smoker. Occasional alcohol use. No drug use. ADDITIONAL NOTES The nursing notes have been reviewed. PHYSICAL EXAM Vital Signs: 05/22/2017 08:50 BP: 126/67. HR: 65. RR: 14. O2 saturation: 98%. Temp: 98 F. Pain level now: 8/10. Appearance: Alert. No acute distress. Eyes: Eyes normal inspection. ENT: Pharynx normal. Neck: Normal inspection. No JVD. CVS: Normal heart rate and rhythm. Heart sounds normal. Respiratory: No respiratory distress. Breath sounds normal. Abdomen: Soft and nontender. Back: No tenderness. Skin: Skin intact. Skin warm. Normal skin color. Extremities: Left leg: moderate tenderness located in the mid leg. Neurovascular intact distally. No erythema, swelling, abrasion or ecchymosis. No limitation of weight bearing. Lower extremities exhibit normal ROM. No lower extremity edema. Neuro: Oriented X 3. No motor deficit. No sensory deficit. LABS, X-RAYS, AND EKG Lower Extremity Sonography: Improved clot compared to prior study. Study type: utilized color Doppler sonography. The exam was performed by a nanotechnician. The study was independently viewed by me and interpreted contemporaneously by me. PROGRESS AND PROCEDURES Course of Care: Zofran 4 mg ODT. Patient/family counseled. Disposition: Discharged. Condition: stable. CLINICAL IMPRESSION Chest pain of GI origin (due to esophageal reflux and esophagitis). Muscle strain of the posterior aspect of the left lower leg. INSTRUCTIONS No strenuous activity. You may walk and bear weight as tolerated. Avoid alcohol and NSAIDS. Examples of NSAIDS include aspirin, ibuprofen (Advil) and naproxen (Aleve). Avoid spicy foods. Other diet: no caffeine. (Bed on blocks NO food before bed.). Warnings: Further evaluation is necessary. Your Current Medications: CONTINUE TAKING THE FOLLOWING MEDICATIONS: Xarelto Oral : Tablet 20 mg, 1 tablet daily. Prescription Medications: Carafate 1 gm tablets: take 1 orally four times daily (30 minutes before meals and at bedtime) for 10 days. Dispense forty (40). No refills. Prilosec 40 mg capsules: take 1 capsule orally every day for 10 days. Dispense ten (10). No refill. Substitution is permissible. OTC Medications: Acetaminophen (available over the counter): take according to label instructions. Follow-up: Follow up with your doctor in one week. Call for an appointment. Understanding of the discharge instructions verbalized by patient. (Electronically signed by Amado Vaughan MD 05/23/2017 21:25)
--- NOTE | 2017-05-22 10:43 | ED ORDER SUMMARY ---
..... Patient: GINA YATES OrderSheet [facility] VisitID: [id number] [address] [place] [address] 32y, F Registration Date/Time: 05/22/2017 ORDER SHEET Weight: 86.1 kg Allergies: No Known Drug Allergy GENERAL ORDERS: US Venous Left Urgent (09:25 05/22/2017 Lisa CAT) (Ack 9:26 [facility]) (10:07 Nathan R.N.) MEDICATION ORDERS: Zofran ODT PO 4 mg (NOW) (09:02 05/22/2017 Nathan R.N. per protocol) (9:03 Nathan R.N.) IV FLUIDS: ORDER SHEET NOTES: [Electronically signed by Misael Plascencia R.N. (10:56 05/22/2017)] [Electronically signed by Amado Vaughan MD (21:25 05/23/2017)] [Electronically locked/signed by Misael Plascencia R.N. (10:56 05/22/2017)]
--- NOTE | 2017-05-22 10:43 | ED ORDER SUMMARY ---
..... Patient: GINA YATES OrderSheet [facility] VisitID: [id number] [address] [place] [address] 32y, F Registration Date/Time: 05/22/2017 ORDER SHEET Weight: 86.1 kg Allergies: No Known Drug Allergy GENERAL ORDERS: US Venous Left Urgent (09:25 05/22/2017 Lisa CAT) (Ack 9:26 [facility]) (10:07 Nathan R.N.) MEDICATION ORDERS: Zofran ODT PO 4 mg (NOW) (09:02 05/22/2017 Nathan R.N. per protocol) (9:03 Nathan R.N.) IV FLUIDS: ORDER SHEET NOTES: [Electronically signed by Misael Plascencia R.N. (10:56 05/22/2017)] [Electronically signed by Amado Vaughan MD (21:25 05/23/2017)] [Electronically locked/signed by Misael Plascencia R.N. (10:56 05/22/2017)]
--- NOTE | 2017-05-22 10:43 | ED CLINICAL REPORT ---
Clinical Report - Physicians/Mid Levels [facility] [address] [place] [address] 05/22/2017 8:30 Patient: GINA YATES Time Seen: 09:18 May 22 2017. Arrived- By private vehicle. Historian- patient. Note: (Sent by Doctor with concern for DVT.). CPT: ER phys charges level 3 (#402642). HISTORY OF PRESENT ILLNESS Chief Complaint: LOWER EXTREMITY PAIN and SWELLING. This started yesterday and is still present. Severity is described as being moderate. It has become recently worse. The quality is noted to be aching and "pain". Symptoms located in the area of the left leg. The patient has had swelling, but not had redness. No difficulty walking. No bladder dysfunction, bowel dysfunction, sensory loss or motor loss. Patient denies an injury. Similar symptoms previously: Recent medical care: Not recently seen/assessed. REVIEW OF SYSTEMS No cough, chest pain, difficulty breathing, fever or skin rash. No enlarged lymph nodes, neck pain, back pain, sore throat or abdominal pain. No vomiting or diarrhea. PAST HISTORY ( Chest Pain. Muscle Spasm. Back Pain. Ovarian Cyst. LNMP - Last Normal Menstrual Period. Lumbar Strain. Pharyngitis. DVT ADDITIONAL SURGERIES: . Tubal Ligation.). Medications: Xarelto Oral (Tablet 20 mg) 1 tablet, daily. Allergies: No Known Drug Allergy. SOCIAL HISTORY Never smoker. Occasional alcohol use. No drug use. ADDITIONAL NOTES The nursing notes have been reviewed. PHYSICAL EXAM Vital Signs: 05/22/2017 08:50 BP: 126/67. HR: 65. RR: 14. O2 saturation: 98%. Temp: 98 F. Pain level now: 8/10. Appearance: Alert. No acute distress. Eyes: Eyes normal inspection. ENT: Pharynx normal. Neck: Normal inspection. No JVD. CVS: Normal heart rate and rhythm. Heart sounds normal. Respiratory: No respiratory distress. Breath sounds normal. Abdomen: Soft and nontender. Back: No tenderness. Skin: Skin intact. Skin warm. Normal skin color. Extremities: Left leg: moderate tenderness located in the mid leg. Neurovascular intact distally. No erythema, swelling, abrasion or ecchymosis. No limitation of weight bearing. Lower extremities exhibit normal ROM. No lower extremity edema. Neuro: Oriented X 3. No motor deficit. No sensory deficit. LABS, X-RAYS, AND EKG Lower Extremity Sonography: Improved clot compared to prior study. Study type: utilized color Doppler sonography. The exam was performed by a technician's helper. The study was independently viewed by me and interpreted contemporaneously by me. PROGRESS AND PROCEDURES Course of Care: Zofran 4 mg ODT. Patient/family counseled. Disposition: Discharged. Condition: stable. CLINICAL IMPRESSION Chest pain of GI origin (due to esophageal reflux and esophagitis). Muscle strain of the posterior aspect of the left lower leg. INSTRUCTIONS No strenuous activity. You may walk and bear weight as tolerated. Avoid alcohol and NSAIDS. Examples of NSAIDS include aspirin, ibuprofen (Advil) and naproxen (Aleve). Avoid spicy foods. Other diet: no caffeine. (Bed on blocks NO food before bed.). Warnings: Further evaluation is necessary. Your Current Medications: CONTINUE TAKING THE FOLLOWING MEDICATIONS: Xarelto Oral : Tablet 20 mg, 1 tablet daily. Prescription Medications: Carafate 1 gm tablets: take 1 orally four times daily (30 minutes before meals and at bedtime) for 10 days. Dispense forty (40). No refills. Prilosec 40 mg capsules: take 1 capsule orally every day for 10 days. Dispense ten (10). No refill. Substitution is permissible. OTC Medications: Acetaminophen (available over the counter): take according to label instructions. Follow-up: Follow up with your doctor in one week. Call for an appointment. Understanding of the discharge instructions verbalized by patient. (Electronically signed by Amado Vaughan MD 05/23/2017 21:25)
--- NOTE | 2017-05-23 21:25 | ED DISCHARGE INSTRUCTIONS ---
Patient: GINA YATES General Instructions [facility] VisitID: [id number] [place] [address] 32y, F Registration Date/Time: 05/22/2017 Chest pain of GI origin (due to esophageal reflux and esophagitis). Muscle strain of the posterior aspect of the left lower leg. INSTRUCTIONS No strenuous activity. You may walk and bear weight as tolerated. Avoid alcohol and NSAIDS. Examples of NSAIDS include aspirin, ibuprofen (Advil) and naproxen (Aleve). Avoid spicy foods. Other diet: no caffeine. (Bed on blocks NO food before bed.). Warnings: Further evaluation is necessary. Your Current Medications: CONTINUE TAKING THE FOLLOWING MEDICATIONS: Xarelto Oral : Tablet 20 mg, 1 tablet daily. Prescription Medications: Carafate 1 gm tablets: take 1 orally four times daily (30 minutes before meals and at bedtime) for 10 days. Dispense forty (40). No refills. Prilosec 40 mg capsules: take 1 capsule orally every day for 10 days. Dispense ten (10). No refill. Substitution is permissible. OTC Medications: Acetaminophen (available over the counter): take according to label instructions. Follow-up: Follow up with your doctor in one week. Call for an appointment. Understanding of the discharge instructions verbalized by patient. ADDITIONAL INFORMATION Muscle Strain,Extremity A MUSCLE STRAIN is a stretching and tearing of muscle fibers. This causes pain, especially with motion of that muscle. There may also be some swelling and bruising. Home Care: 1) Keep the injured area raised to reduce pain and swelling. This is especially important during the first 48 hours. 2) Make an ice pack (ice cubes in a plastic bag, wrapped in a towel) and apply for 20 minutes every 1-2 hours the first day. You should continue with ice packs 3-4 times a day for the second and third days. Unless otherwise instructed, on the fourth day you may begin hot soaks or hot packs (small towel soaked in hot water) 3-4 times a day while you gently exercise the involved area. 3) You may use acetaminophen (Tylenol) or ibuprofen (Motrin, Advil) to control pain, unless another medicine was prescribed. [ NOTE : If you have chronic liver or kidney disease or ever had a stomach ulcer or GI bleeding, talk with your doctor before using these medicines.] 4) For LEG STRAINS: If CRUTCHES have been recommended, do not bear full weight on the injured leg until you can do so without pain. You may return to sports when you are able to hop and run on the injured leg without pain. Follow Up with your doctor or this facility if you are not improving within the next five days. Get Prompt Medical Attention if any of the following occur: -- Fingers or toes become swollen, cold, blue, numb or tingly -- Pain or swelling increases GERD (Adult) The esophagus is a tube that carries food from the mouth to the stomach. A valve at the lower end of the esophagus prevents stomach acid from flowing upward. If this valve does not work properly, acid from the stomach enters the esophagus. If this occurs over and over, the acid will injure the lining of the esophagus. This condition is called GERD (gastroesophageal reflux disease) or acid reflux. When stomach acid flows upward into the esophagus, it causes burning, pressure or sharp pain in the upper abdomen or mid to lower chest. The pain can spread to the neck, back, or shoulder, similar to heart pain (angina). There may be belching, an acid taste in the back of the throat, chronic cough, or sore throat or hoarseness. GERD symptoms often occur during the day after a big meal, but it can also occur at night when lying down. Smoking,as well as drinking alcohol, increases the risk of GERD. GERD is a chronic condition. Once it begins, it is often lifelong. Treatment includes changes in eating habits and the use of acid ally medications to decrease the amount of acid in the stomach. Symptoms often improve with treatment, but if treatment is stopped, the symptoms usually return after a few months. So most persons with GERD will need to continue treatment. Home Care: Take the prescribed acid ally medication for the full course of treatment even if you begin to feel better sooner. This medication can take up to several days to fully control your symptoms. If you cant afford the prescribed medication, you can try [id number] acid blockers, such as Pepcid AC, Tagamet, Zantac, or Aciphex. If these do not relieve your symptoms, a stronger acid-ally can be tried, such as Prilosec OTC. You can use antacids, such as Tums, Rolaids, Mylanta, or Maalox, for pain. This will be useful the first few days after starting acid blockers when the blockers havent started working yet. Follow the directions on the label. Liquid antacids may work better than tablets. Note that antacids can interfere with absorption of certain medications. Specifically, do not take Tagamet (cimetidine), Zantac (ranitidine), or Carafate (sucralfate) within 1 hour of taking an antacid. Talk with your pharmacist if you have any questions. Limit or avoid fatty, fried, and spicy foods, as well as coffee, chocolate, mint, and foods with high acid content such as tomatoes and citrus fruit and juices (orange, grapefruit, lemon). Avoid alcohol and smoking. Dont eat large meals, especially at night. Frequent, smaller meals are best. Do not lie down right after eating. And dont eat anything 3 hours before going to bed. If you are overweight, losing weight will reduce symptoms. Women should not wear corsets or girdles because this increases pressure on the stomach and worsens reflux. If your symptoms occur during sleep, use a foam wedge to elevate your upper body (not just your head.) Or, place 4" blocks under the head of your bed. Follow Up with your doctor or as advised by our staff. Further testing may be needed. If you do not begin to improve over the next 4 days, contact your doctor. If you had an x-ray, CT scan, or ECG (electrocardiogram), it will be reviewed by a specialist. Youll be notified of any new findings that affect your care. Get Prompt Medical Attention if any of the following occur: Stomach pain gets worse or moves to the lower right abdomen (appendix area) Chest pain appears or gets worse, or spreads to the back, neck, shoulder, or arm Frequent vomiting (cant keep down liquids) Blood in the stool or vomit (red or black in color) Feeling weak or dizzy, fainting, or trouble breathing Fever of 100.4F (38C) or higher, or as directed by your healthcare provider [place] Diet A bland diet is used for patients with an upset stomach. It consists of foods that are mild and easy to digest. It is better to eat small frequent meals rather than three large meals a day. BEVERAGES OK: Fruit juices, non-caffeinated teas and coffee, non-carbonated ortiz AVOID: Carbonated beverage, caffeinated tea and coffee, all alcoholic beverages BREAD OK: Refined white, wheat or rye bread, david or soda crackers, Yun toast, plain rolls, bagels AVOID: Whole-grain bread CEREAL OK: Refined cereals: cooked or ready to eat AVOID: Whole grain cereals and granola, or those containing bran, seeds or nuts DESSERTS OK: Peanut butter and all others except those to "avoid" AVOID: Chocolate, cocoa, coconut, popcorn, nuts, seeds, jam, marmalade FRUITS OK: Canned, cooked, frozen or fresh fruits without seeds or tough skin AVOID: Olives, skin and seeds of fruit MEATS OK: All fresh or preserved meat, fish and fowl AVOID: Any that are prepared with those spices to "avoid" CHEESE & EGGS OK: Eggs, cottage cheese, cream cheese, other cheeses AVOID: All cheeses made with those spices to "avoid" POTATOES & PASTA OK: Potato, rice, macaroni, noodles, spaghetti AVOID: None SOUPS OK: All soups without heavy seasoning AVOID: Soups made with those spices to "avoid" VEGETABLES OK: Canned, cooked, fresh or frozen mildly flavored vegetables without seeds, skins or coarse fiber AVOID: Vegetables prepared with those spices to "avoid"; skin and seeds of vegetables and those with coarse fiber SPICES OK: Salt, lemon and [place] juice, vinegar, all extracts, milvia, cinnamon, thyme, mace, allspice, paprika AVOID: [place] powder, cloves, pepper, seed spices, garlic, gravy pickles, highly seasoned salad dressings Sucralfate Oral tablet What is this medicine? SUCRALFATE (ANAHI alana fate) helps to treat ulcers of the intestine. How should I use this medicine? Take this medicine by mouth with a glass of water. Follow the directions on the prescription label. This medicine works best if you take it on an empty stomach, 1 hour before meals. Take your doses at regular intervals. Do not take your medicine more often than directed. Do not stop taking except on your doctor's advice. Talk to your metal drill operator regarding the use of this medicine in children. Special care may be needed. What side effects may I notice from receiving this medicine? Side effects that you should report to your doctor or health director long term care as soon as possible: allergic reactions like skin rash, itching or hives, swelling of the face, lips, or tongue difficulty breathing Side effects that usually do not require medical attention (report to your doctor or health director long term care if they continue or are bothersome): back pain constipation drowsy, dizzy dry mouth headache stomach upset, gas trouble sleeping What may interact with this medicine? antacid cimetidine digoxin ketoconazole phenytoin quinidine ranitidine some antibiotics like ciprofloxacin, norfloxacin, and ofloxacin theophylline thyroid hormones warfarin What if I miss a dose? If you miss a dose, take it as soon as you can. If it is almost time for your next dose, take only that dose. Do not take double or extra doses. Where should I keep my medicine? Keep out of the reach of children. Store at room temperature between 15 and 30 degrees C (59 and 86 degrees F). Keep container tightly closed. Throw away any unused medicine after the expiration date. What should I tell my health care provider before I take this medicine? They need to know if you have any of these conditions: kidney disease an unusual or allergic reaction to sucralfate, other medicines, foods, dyes, or preservatives or trying to get breast-feeding What should I watch for while using this medicine? Visit your doctor or health director long term care for regular check ups. Let your doctor know if your symptoms do not improve or if you feel worse. Antacids should not be taken within one half hour before or after this medicine. Omeprazole Magnesium Gastro-resistant tablet What is this medicine? OMEPRAZOLE (oh ME pray zol) prevents the production of acid in the stomach. It is used to treat the symptoms of heartburn. You can buy this medicine without a prescription. This product is not for long-term use, unless otherwise directed by your doctor or health director long term care. How should I use this medicine? Take this medicine by mouth. Follow the directions on the product label. If you are taking this medicine without a prescription, take one tablet every day. Do not use for longer than 14 days or repeat a course of treatment more often than every 4 months unless directed by a doctor or healthcare professional. Take your dose at regular intervals every 24 hours. Swallow the tablet whole with a drink of water. Do not crush, break or chew. This medicine works best if taken on an empty stomach 30 minutes before breakfast. If you are using this medicine with the prescription of your doctor or healthcare professional, follow the directions you were given. Do not take your medicine more often than directed. Talk to your metal drill operator regarding the use of this medicine in children. Special care may be needed. What side effects may I notice from receiving this medicine? Side effects that you should report to your doctor or health director long term care as soon as possible: allergic reactions like skin rash, itching or hives, swelling of the face, lips, or tongue bone, muscle or joint pain breathing problems chest pain or chest tightness dark yellow or brown urine diarrhea dizziness fast, irregular heartbeat feeling faint or lightheaded fever or sore throat muscle spasm palpitations redness, blistering, peeling or loosening of the skin, including inside the mouth seizures tremors unusual bleeding or bruising unusually weak or tired yellowing of the eyes or skin Side effects that usually do not require medical attention (Report these to your doctor or health director long term care if they continue or are bothersome.): constipation dry mouth headache loose stools nausea What may interact with this medicine? Do not take this medicine with any of the following medications: atazanavir clopidogrel nelfinavir This medicine may also interact with the following medications: ampicillin certain medicines for anxiety or sleep certain medicines that treat or prevent blood clots like warfarin cyclosporine diazepam digoxin disulfiram iron salts phenytoin prescription medicine for fungal or yeast infection like itraconazole, ketoconazole, voriconazole saquinavir tacrolimus What if I miss a dose? If you miss a dose, take it as soon as you can. If it is almost time for your next dose, take only that dose. Do not take double or extra doses. Where should I keep my medicine? Keep out of the reach of children. Store at room temperature between 20 and 25 degrees C (68 and 77 degrees F). Protect from light and moisture. Throw away any unused medicine after the expiration date. What should I tell my health care provider before I take this medicine? They need to know if you have any of these conditions: black or bloody stools chest pain difficulty swallowing have had heartburn for over 3 months have heartburn with dizziness, lightheadedness or sweating liver disease stomach pain unexplained weight loss vomiting with blood wheezing an unusual or allergic reaction to omeprazole, other medicines, foods, dyes, or preservatives or trying to get breast-feeding What should I watch for while using this medicine? It can take several days before your heartburn gets better. Check with your doctor or health director long term care if your condition does not start to get better, or if it gets worse. Do not treat diarrhea with over the counter products. Contact your doctor if you have diarrhea that lasts more than 2 days or if it is severe and watery. Do not treat yourself for heartburn with this medicine for more than 14 days in a row. You should only use this medicine for a 2-week treatment period once every 4 months. If your symptoms return shortly after your therapy is complete, or within the 4 month time frame, call your doctor or health director long term care. You have been given the following additional information: Muscle Strain, Extremity GERD (Adult) Diet, [place] (Adult) Sucralfate Oral tablet Omeprazole Magnesium Gastro-resistant tablet No strenuous activity. You may walk and bear weight as tolerated. (Electronically signed by Amado Vaughan MD 05/23/2017 21:25)
--- NOTE | 2017-05-23 21:25 | ED MED RECONCILIATION SUMMARY ---
Patient: GINA YATES Medication Reconciliation Report [facility] VisitID: [id number] [address] [place] [address] 32y, F Registration Date/Time: 05/22/2017 Weight: 86.1 kg Height/Length: 63 in. BMI: 33.6 ALLERGIES: No Known Drug Allergy The patient's Home Medications are listed below: CONTINUE TAKING THE FOLLOWING MEDICATIONS: Xarelto Oral (20 mg) 1 tablet, daily The source(s) of the original Home Medication information: patient The following Medications were given to the patient in the Emergency Department: Zofran ODT [PO] PO 4 mg, administered: 05/22/2017 9:03:00 AM The following Medications were prescribed to the patient: Acetaminophen (available over the counter): take according to label instructions. -- Amado Vaughan MD Carafate 1 gm tablets: take 1 orally four times daily (30 minutes before meals and at bedtime) for 10 days. Dispense forty (40). No refills. -- Amado Vaughan MD Prilosec 40 mg capsules: take 1 capsule orally every day for 10 days. Dispense ten (10). No refill. Substitution is permissible. -- Amado Vaughan MD
--- NOTE | 2017-05-23 21:25 | ED MAR SUMMARY ---
..... Medication Administration Record [facility] [address] [place] [address] Patient: GINA YATES Visit ID: [id number] 32y, F Weight: 86.1 kg Height/Length: 63 in BMI: 33.6 ALLERGIES: No Known Drug Allergy Given 09:03 05/22/2017 Misael Plascencia R.N. Medication Administered: ZOFRAN ODT [PO] (ONDANSETRON), Dose: 4 mg PO. Medication Ordered: Zofran ODT PO 4 mg (NOW).
--- NOTE | 2017-05-23 21:25 | ED DISCHARGE INSTRUCTIONS ---
Patient: GINA YATES General Instructions [facility] VisitID: [id number] [place] [address] 32y, F Registration Date/Time: 05/22/2017 Chest pain of GI origin (due to esophageal reflux and esophagitis). Muscle strain of the posterior aspect of the left lower leg. INSTRUCTIONS No strenuous activity. You may walk and bear weight as tolerated. Avoid alcohol and NSAIDS. Examples of NSAIDS include aspirin, ibuprofen (Advil) and naproxen (Aleve). Avoid spicy foods. Other diet: no caffeine. (Bed on blocks NO food before bed.). Warnings: Further evaluation is necessary. Your Current Medications: CONTINUE TAKING THE FOLLOWING MEDICATIONS: Xarelto Oral : Tablet 20 mg, 1 tablet daily. Prescription Medications: Carafate 1 gm tablets: take 1 orally four times daily (30 minutes before meals and at bedtime) for 10 days. Dispense forty (40). No refills. Prilosec 40 mg capsules: take 1 capsule orally every day for 10 days. Dispense ten (10). No refill. Substitution is permissible. OTC Medications: Acetaminophen (available over the counter): take according to label instructions. Follow-up: Follow up with your doctor in one week. Call for an appointment. Understanding of the discharge instructions verbalized by patient. ADDITIONAL INFORMATION Muscle Strain,Extremity A MUSCLE STRAIN is a stretching and tearing of muscle fibers. This causes pain, especially with motion of that muscle. There may also be some swelling and bruising. Home Care: 1) Keep the injured area raised to reduce pain and swelling. This is especially important during the first 48 hours. 2) Make an ice pack (ice cubes in a plastic bag, wrapped in a towel) and apply for 20 minutes every 1-2 hours the first day. You should continue with ice packs 3-4 times a day for the second and third days. Unless otherwise instructed, on the fourth day you may begin hot soaks or hot packs (small towel soaked in hot water) 3-4 times a day while you gently exercise the involved area. 3) You may use acetaminophen (Tylenol) or ibuprofen (Motrin, Advil) to control pain, unless another medicine was prescribed. [ NOTE : If you have chronic liver or kidney disease or ever had a stomach ulcer or GI bleeding, talk with your doctor before using these medicines.] 4) For LEG STRAINS: If CRUTCHES have been recommended, do not bear full weight on the injured leg until you can do so without pain. You may return to sports when you are able to hop and run on the injured leg without pain. Follow Up with your doctor or this facility if you are not improving within the next five days. Get Prompt Medical Attention if any of the following occur: -- Fingers or toes become swollen, cold, blue, numb or tingly -- Pain or swelling increases GERD (Adult) The esophagus is a tube that carries food from the mouth to the stomach. A valve at the lower end of the esophagus prevents stomach acid from flowing upward. If this valve does not work properly, acid from the stomach enters the esophagus. If this occurs over and over, the acid will injure the lining of the esophagus. This condition is called GERD (gastroesophageal reflux disease) or acid reflux. When stomach acid flows upward into the esophagus, it causes burning, pressure or sharp pain in the upper abdomen or mid to lower chest. The pain can spread to the neck, back, or shoulder, similar to heart pain (angina). There may be belching, an acid taste in the back of the throat, chronic cough, or sore throat or hoarseness. GERD symptoms often occur during the day after a big meal, but it can also occur at night when lying down. Smoking,as well as drinking alcohol, increases the risk of GERD. GERD is a chronic condition. Once it begins, it is often lifelong. Treatment includes changes in eating habits and the use of acid ally medications to decrease the amount of acid in the stomach. Symptoms often improve with treatment, but if treatment is stopped, the symptoms usually return after a few months. So most persons with GERD will need to continue treatment. Home Care: Take the prescribed acid ally medication for the full course of treatment even if you begin to feel better sooner. This medication can take up to several days to fully control your symptoms. If you cant afford the prescribed medication, you can try [id number] acid blockers, such as Pepcid AC, Tagamet, Zantac, or Aciphex. If these do not relieve your symptoms, a stronger acid-ally can be tried, such as Prilosec OTC. You can use antacids, such as Tums, Rolaids, Mylanta, or Maalox, for pain. This will be useful the first few days after starting acid blockers when the blockers havent started working yet. Follow the directions on the label. Liquid antacids may work better than tablets. Note that antacids can interfere with absorption of certain medications. Specifically, do not take Tagamet (cimetidine), Zantac (ranitidine), or Carafate (sucralfate) within 1 hour of taking an antacid. Talk with your pharmacist if you have any questions. Limit or avoid fatty, fried, and spicy foods, as well as coffee, chocolate, mint, and foods with high acid content such as tomatoes and citrus fruit and juices (orange, grapefruit, lemon). Avoid alcohol and smoking. Dont eat large meals, especially at night. Frequent, smaller meals are best. Do not lie down right after eating. And dont eat anything 3 hours before going to bed. If you are overweight, losing weight will reduce symptoms. Women should not wear corsets or girdles because this increases pressure on the stomach and worsens reflux. If your symptoms occur during sleep, use a foam wedge to elevate your upper body (not just your head.) Or, place 4" blocks under the head of your bed. Follow Up with your doctor or as advised by our staff. Further testing may be needed. If you do not begin to improve over the next 4 days, contact your doctor. If you had an x-ray, CT scan, or ECG (electrocardiogram), it will be reviewed by a specialist. Youll be notified of any new findings that affect your care. Get Prompt Medical Attention if any of the following occur: Stomach pain gets worse or moves to the lower right abdomen (appendix area) Chest pain appears or gets worse, or spreads to the back, neck, shoulder, or arm Frequent vomiting (cant keep down liquids) Blood in the stool or vomit (red or black in color) Feeling weak or dizzy, fainting, or trouble breathing Fever of 100.4F (38C) or higher, or as directed by your healthcare provider [place] Diet A bland diet is used for patients with an upset stomach. It consists of foods that are mild and easy to digest. It is better to eat small frequent meals rather than three large meals a day. BEVERAGES OK: Fruit juices, non-caffeinated teas and coffee, non-carbonated ortiz AVOID: Carbonated beverage, caffeinated tea and coffee, all alcoholic beverages BREAD OK: Refined white, wheat or rye bread, david or soda crackers, Yun toast, plain rolls, bagels AVOID: Whole-grain bread CEREAL OK: Refined cereals: cooked or ready to eat AVOID: Whole grain cereals and granola, or those containing bran, seeds or nuts DESSERTS OK: Peanut butter and all others except those to "avoid" AVOID: Chocolate, cocoa, coconut, popcorn, nuts, seeds, jam, marmalade FRUITS OK: Canned, cooked, frozen or fresh fruits without seeds or tough skin AVOID: Olives, skin and seeds of fruit MEATS OK: All fresh or preserved meat, fish and fowl AVOID: Any that are prepared with those spices to "avoid" CHEESE & EGGS OK: Eggs, cottage cheese, cream cheese, other cheeses AVOID: All cheeses made with those spices to "avoid" POTATOES & PASTA OK: Potato, rice, macaroni, noodles, spaghetti AVOID: None SOUPS OK: All soups without heavy seasoning AVOID: Soups made with those spices to "avoid" VEGETABLES OK: Canned, cooked, fresh or frozen mildly flavored vegetables without seeds, skins or coarse fiber AVOID: Vegetables prepared with those spices to "avoid"; skin and seeds of vegetables and those with coarse fiber SPICES OK: Salt, lemon and platinum juice, vinegar, all extracts, milvia, cinnamon, thyme, mace, allspice, paprika AVOID: [place] powder, cloves, pepper, seed spices, garlic, gravy pickles, highly seasoned salad dressings Sucralfate Oral tablet What is this medicine? SUCRALFATE (ANAHI alana fate) helps to treat ulcers of the intestine. How should I use this medicine? Take this medicine by mouth with a glass of water. Follow the directions on the prescription label. This medicine works best if you take it on an empty stomach, 1 hour before meals. Take your doses at regular intervals. Do not take your medicine more often than directed. Do not stop taking except on your doctor's advice. Talk to your tow car driver regarding the use of this medicine in children. Special care may be needed. What side effects may I notice from receiving this medicine? Side effects that you should report to your doctor or health family day care worker as soon as possible: allergic reactions like skin rash, itching or hives, swelling of the face, lips, or tongue difficulty breathing Side effects that usually do not require medical attention (report to your doctor or health family day care worker if they continue or are bothersome): back pain constipation drowsy, dizzy dry mouth headache stomach upset, gas trouble sleeping What may interact with this medicine? antacid cimetidine digoxin ketoconazole phenytoin quinidine ranitidine some antibiotics like ciprofloxacin, norfloxacin, and ofloxacin theophylline thyroid hormones warfarin What if I miss a dose? If you miss a dose, take it as soon as you can. If it is almost time for your next dose, take only that dose. Do not take double or extra doses. Where should I keep my medicine? Keep out of the reach of children. Store at room temperature between 15 and 30 degrees C (59 and 86 degrees F). Keep container tightly closed. Throw away any unused medicine after the expiration date. What should I tell my health care provider before I take this medicine? They need to know if you have any of these conditions: kidney disease an unusual or allergic reaction to sucralfate, other medicines, foods, dyes, or preservatives or trying to get breast-feeding What should I watch for while using this medicine? Visit your doctor or health family day care worker for regular check ups. Let your doctor know if your symptoms do not improve or if you feel worse. Antacids should not be taken within one half hour before or after this medicine. Omeprazole Magnesium Gastro-resistant tablet What is this medicine? OMEPRAZOLE (oh ME pray zol) prevents the production of acid in the stomach. It is used to treat the symptoms of heartburn. You can buy this medicine without a prescription. This product is not for long-term use, unless otherwise directed by your doctor or health family day care worker. How should I use this medicine? Take this medicine by mouth. Follow the directions on the product label. If you are taking this medicine without a prescription, take one tablet every day. Do not use for longer than 14 days or repeat a course of treatment more often than every 4 months unless directed by a doctor or healthcare professional. Take your dose at regular intervals every 24 hours. Swallow the tablet whole with a drink of water. Do not crush, break or chew. This medicine works best if taken on an empty stomach 30 minutes before breakfast. If you are using this medicine with the prescription of your doctor or healthcare professional, follow the directions you were given. Do not take your medicine more often than directed. Talk to your tow car driver regarding the use of this medicine in children. Special care may be needed. What side effects may I notice from receiving this medicine? Side effects that you should report to your doctor or health family day care worker as soon as possible: allergic reactions like skin rash, itching or hives, swelling of the face, lips, or tongue bone, muscle or joint pain breathing problems chest pain or chest tightness dark yellow or brown urine diarrhea dizziness fast, irregular heartbeat feeling faint or lightheaded fever or sore throat muscle spasm palpitations redness, blistering, peeling or loosening of the skin, including inside the mouth seizures tremors unusual bleeding or bruising unusually weak or tired yellowing of the eyes or skin Side effects that usually do not require medical attention (Report these to your doctor or health family day care worker if they continue or are bothersome.): constipation dry mouth headache loose stools nausea What may interact with this medicine? Do not take this medicine with any of the following medications: atazanavir clopidogrel nelfinavir This medicine may also interact with the following medications: ampicillin certain medicines for anxiety or sleep certain medicines that treat or prevent blood clots like warfarin cyclosporine diazepam digoxin disulfiram iron salts phenytoin prescription medicine for fungal or yeast infection like itraconazole, ketoconazole, voriconazole saquinavir tacrolimus What if I miss a dose? If you miss a dose, take it as soon as you can. If it is almost time for your next dose, take only that dose. Do not take double or extra doses. Where should I keep my medicine? Keep out of the reach of children. Store at room temperature between 20 and 25 degrees C (68 and 77 degrees F). Protect from light and moisture. Throw away any unused medicine after the expiration date. What should I tell my health care provider before I take this medicine? They need to know if you have any of these conditions: black or bloody stools chest pain difficulty swallowing have had heartburn for over 3 months have heartburn with dizziness, lightheadedness or sweating liver disease stomach pain unexplained weight loss vomiting with blood wheezing an unusual or allergic reaction to omeprazole, other medicines, foods, dyes, or preservatives or trying to get breast-feeding What should I watch for while using this medicine? It can take several days before your heartburn gets better. Check with your doctor or health family day care worker if your condition does not start to get better, or if it gets worse. Do not treat diarrhea with over the counter products. Contact your doctor if you have diarrhea that lasts more than 2 days or if it is severe and watery. Do not treat yourself for heartburn with this medicine for more than 14 days in a row. You should only use this medicine for a 2-week treatment period once every 4 months. If your symptoms return shortly after your therapy is complete, or within the 4 month time frame, call your doctor or health family day care worker. You have been given the following additional information: Muscle Strain, Extremity GERD (Adult) Diet, [place] (Adult) Sucralfate Oral tablet Omeprazole Magnesium Gastro-resistant tablet No strenuous activity. You may walk and bear weight as tolerated. (Electronically signed by Amado Vaughan MD 05/23/2017 21:25)
--- NOTE | 2017-05-23 21:25 | ED MED RECONCILIATION SUMMARY ---
Patient: GINA YATES Medication Reconciliation Report [facility] VisitID: [id number] [address] [place] [address] 32y, F Registration Date/Time: 05/22/2017 Weight: 86.1 kg Height/Length: 63 in. BMI: 33.6 ALLERGIES: No Known Drug Allergy The patient's Home Medications are listed below: CONTINUE TAKING THE FOLLOWING MEDICATIONS: Xarelto Oral (20 mg) 1 tablet, daily The source(s) of the original Home Medication information: patient The following Medications were given to the patient in the Emergency Department: Zofran ODT [PO] PO 4 mg, administered: 05/22/2017 9:03:00 AM The following Medications were prescribed to the patient: Acetaminophen (available over the counter): take according to label instructions. -- Amado Vaughan MD Carafate 1 gm tablets: take 1 orally four times daily (30 minutes before meals and at bedtime) for 10 days. Dispense forty (40). No refills. -- Amado Vaughan MD Prilosec 40 mg capsules: take 1 capsule orally every day for 10 days. Dispense ten (10). No refill. Substitution is permissible. -- Amado Vaughan MD
--- NOTE | 2017-05-23 21:25 | ED MAR SUMMARY ---
..... Medication Administration Record [facility] [address] [place] [address] Patient: GINA YATES Visit ID: [id number] 32y, F Weight: 86.1 kg Height/Length: 63 in BMI: 33.6 ALLERGIES: No Known Drug Allergy Given 09:03 05/22/2017 Misael Plascencia R.N. Medication Administered: ZOFRAN ODT [PO] (ONDANSETRON), Dose: 4 mg PO. Medication Ordered: Zofran ODT PO 4 mg (NOW).
== END 2017-05-22 10:51 | disposition home or self-care (01) ==
LOC: ED SRH 08:29
DX: S86.912A Strain of unspecified muscle(s) and tendon(s) at lower leg level, left leg, initial encounter (principal); X58.XXXA Exposure to other specified factors, initial encounter; Y93.9 Activity, unspecified; Y92.9 Unspecified place or not applicable; Y99.9 Unspecified external cause status; R07.89 Other chest pain; K21.0 Gastro-esophageal reflux disease with esophagitis; Z79.899 Other long term (current) drug therapy